=== PATIENT | female | born 1960 | race Two or more races ===

== ENCOUNTER 2020-08-20 10:11 | Outpatient (CLI) | payer BC, SELFPAY ==
--- NOTE | ~2020-08-20 | XR_ITS ---
EXAMINATION: CT abdomen pelvis wo con, XR abdomen/kub 1V DATE: 08/20/2020 10:35 INDICATION: Right upper quadrant abdominal pain TECHNIQUE: Computed tomography (CT) of the abdomen and pelvis was performed without intravenous contr ast. Automated exposure control and iterative reconstruction technique were employed. The dose-length product was 452.15 mGy-cm. COMPARISON: CT dated 12/11/2006 FINDINGS: CT: Lung bases are clear. Heart size is normal. No pericardial or pleural effusion. Liver, spleen, pancre as and bilateral adrenal glands are normal. There is suggestion of edematous gallbladder wall thicken ing best appreciated on the coronal and sagittal images raising suspicion for acute cholecystitis. Th ere is however no surrounding inflammatory stranding to more specifically suggest this. Kidneys and u reters are normal with no urolithiasis, hydroureteronephrosis or perinephric/ureteral stranding. Blad bebeto is normal. The uterus is not identified and has likely been surgically resected. Normal appendix. No abnormal bowel wall thickening or obstruction. No free intraperitoneal gas or fluid. No pathologi miracle enlarged abdominal or pelvic lymphadenopathy. Mild lumbar spondylosis. KUB: Normal bowel gas pattern. No suspicious calcifications in the abdomen or pelvis. Lung bases are clear . IMPRESSION: 1. Suggestion of subtle edematous gallbladder wall thickening but without surrounding inflammatory st randing, nonetheless suspicious for early acute cholecystitis. Consider right upper quadrant ultrasou nd or HIDA scan for further evaluation. Reviewed, dictated and finalized at location B. IMPRESSION: 1. Suggestion of subtle edematous gallbladder wall thickening but without surro unding inflammatory stranding, nonetheless suspicious for early acute cholecyst itis. Consider right upper quadrant ultrasound or HIDA scan for further evaluat ion.
== END 2020-08-20 10:12 | disposition home or self-care (01) ==
PROVIDERS: PCP Family Medicine
DX: R10.817 Generalized abdominal tenderness (principal); R10.11 Right upper quadrant pain; R94.8 Abnormal results of function studies of other organs and systems
CPT/HCPCS: 74018; 74176

== ENCOUNTER 2020-09-10 08:03 | Outpatient (CLI) | payer BC, SELFPAY ==
--- NOTE | ~2020-09-10 | NM_ITS ---
EXAMINATION: NM hepatobiliary w pharm EXAM DATE: 09/10/2020 12:44 INDICATION: RUQ abd pain R10.11 - Right upper quadrant pain . TECHNIQUE: 4.6 mCi Tc-99m mebrofenin (Choletec) was administered intravenously. Scintigraphic images of the abdomen were obtained for one hour. At the 1 hour time point, 1.5 mcg sincalide (Kinevac) was administered by slow intravenous infusion, and imaging was continued for 30 minutes. Gallbladder eje ction fraction was calculated by the technologist. There is no prior study for comparison. FINDINGS: There is normal clearance of radiotracer from the blood pool. There is homogeneous tracer u ptake by the liver. Activity progresses to the gallbladder and bowel. The gallbladder ejection fract ion (GBEF) is 32 % (most patients with gallbladder dysfunction have GBEF < 35%, but there is overlap with the normal range of 10-90%). IMPRESSION: Gallbladder ejection fraction 32%, which may indicate some component of gallbladder dysf unction and/or chronic cholecystitis. Reviewed, dictated and finalized at location B. [employer] [employer]OOFER IMPRESSION: Gallbladder ejection fraction 32%, which may indicate some compone nt of gallbladder dysfunction and/or chronic cholecystitis.
== END 2020-09-10 08:04 | disposition home or self-care (01) ==
PROVIDERS: PCP Family Medicine; Visit Provider Nurse Practitioner Family
DX: R10.11 Right upper quadrant pain (principal)
CPT/HCPCS: 78227; A9537; J2805